=== PATIENT | female | born 1985 | race Caucasian/White ===

== ENCOUNTER 2016-09-08 11:54 | Emergency (ER) | payer OTHER ==
[~2016-09-08] VITALS: Wt 69.0 kg
[~2016-09-08 11:54] MED LIST: AMIT10TA6 PO; DULO30CA45 PO; GABA-526 PO; SYN75 PO
[2016-09-08] MEDS ORDERED: KETOROLAC 30 MG INJ IM STA (12:25)
[2016-09-08] MEDS ORDERED: OXYCODONE/ACETAMINOPHEN (5/325) TAB PO ONE (12:30)
[2016-09-08 12:36] VITALS: BP 127/78; PULSE 82; RESP 17
[2016-09-08] MEDS ORDERED: OXYC-209 PO (12:44)
[2016-09-08] MEDS ORDERED: OXYC20TA41 PO (12:44)
[2016-09-08] MEDS ORDERED: LYR75 PO (12:44)
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
[2016-09-08] MEDS ORDERED: IBUP-1542 PO (13:18)
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
--- NOTE | 2016-09-08 13:48 | RADRPT ---
PROCEDURE: XR Chest AP portable CLINICAL INDICATION: Trauma TECHNIQUE: An AP portable radiograph of the chest was submitted. COMPARISON: 03/24/2016 FINDINGS: Support Hardware: Since the previous study, the patient has been extubated and the NG tube and right . There are central venous catheter and removed. Cardiovascular: The cardiovascular silhouette appears unremarkable. Lung Weiss: The lung weiss appear clear with no nodule, alveolar infiltrate, or interstitial promi nence evident. Pleural Spaces: No pneumothorax or pleural effusion is identified. Osseous Structures: The osseous structures appear intact. Soft Tissues: The soft tissues appear unremarkable. IMPRESSION: 1. Since the previous study, the tubes and lines have been removed. 2. Otherwise, stable and unremarkable portable chest. Physician Tea Date Time Electronically viewed and signed by Eddy Broderick Physician on 09/08/2016 13:47 /
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
== END 2016-09-08 14:26 | disposition home or self-care (01) ==
LOC: E/R 11:54
DX: S16.1XXA Strain of muscle, fascia and tendon at neck level, initial encounter (principal); S83.92XA Sprain of unspecified site of left knee, initial encounter; J45.909 Unspecified asthma, uncomplicated; R40.2142 Coma scale, eyes open, spontaneous, at arrival to emergency department; E03.9 Hypothyroidism, unspecified; G89.4 Chronic pain syndrome; V43.52XA Car driver injured in collision with other type car in traffic accident, initial encounter
CPT/HCPCS: 71010; 72125; 73562; 96372; J1885; Z7502; Z7610

== ENCOUNTER 2017-05-29 09:29 | Emergency (ER) | END 2017-05-29 12:15 | disposition left against medical advice (07) ==

== ENCOUNTER 2017-07-03 12:53 | Emergency (ER) | END 2017-07-04 14:40 | disposition short-term general hospital (02) ==

== ENCOUNTER 2018-02-23 20:38 | Emergency (ER) | END 2018-02-23 23:58 | disposition home or self-care (01) ==

== ENCOUNTER 2018-10-08 21:16 | Emergency (ER) | payer OTHER ==
[~2018-10-08] VITALS: Ht 157.5 cm; Wt 70.0 kg
[~2018-10-08 21:16] MED LIST changes: -AMIT10TA6 PO; -DULO30CA45 PO; -GABA-526 PO; +NAPR-985 PO; -SYN75 PO
[2018-10-08 21:19] VITALS: Ht 157.5 cm; Wt 70.0 kg
[2018-10-08] MEDS ORDERED: SOD CHLORIDE 0.9% 1,000 ML IV STA (21:29)
[2018-10-08] MEDS ORDERED: HYDROmorphONE 1 MG/ML SYG IV STA (21:29)
[2018-10-08] MEDS ORDERED: ONDANSETRON 4 MG INJ IV STA (21:29)
[2018-10-08] MEDS ORDERED: CEFAZOLIN 1 GM/50 ML (PMX) 50 ML IVPB SCH (21:30)
[2018-10-08] MEDS ORDERED: DIPHTH/TET/ACEL PERTUSS (ADULT) 0.5 ML VIAL IM* ONE (21:30)
[2018-10-08] MEDS ORDERED: HYDR-3980 PO (22:39)
[2018-10-08] MEDS ORDERED: HYDROmorphONE 0.5 MG/0.5 ML SYG IV STA (22:41)
[2018-10-08] MEDS ORDERED: SILVER SULFADIAZINE 1% 25 GM CR TOP ONE (23:00)
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
[2018-10-08 23:31] VITALS: BP 109/65; PULSE 82; RESP 16
== END 2018-10-08 23:32 | disposition home or self-care (01) ==
LOC: E/R 21:16
DX: T23.251A Burn of second degree of right palm, initial encounter (principal); E03.9 Hypothyroidism, unspecified; F17.210 Nicotine dependence, cigarettes, uncomplicated; X11.8XXA Contact with other hot tap-water, initial encounter; Y92.9 Unspecified place or not applicable; Z23 Encounter for immunization
CPT/HCPCS: 16020; 36415; 80053; 83690; 85025; 90471; 90715; 96374; 96375; 96376; J0690; J1170; J2405; J7030; Z7502; Z7610